=== PATIENT | male | born 1950 | race Caucasian/White ===

== ENCOUNTER 2016-11-19 08:08 | Emergency (ER) | payer MEDICAID ==
[~2016-11-19] VITALS: Ht 170.2 cm; Wt 82.2 kg
[2016-11-19 08:09] VITALS: BP 178/107
[2016-11-19] MEDS ORDERED: OMEP20TA62 PO (08:34)
== END 2016-11-19 09:52 | disposition home or self-care (01) ==
LOC: ED 08:58
DX: S46.811A Strain of other muscles, fascia and tendons at shoulder and upper arm level, right arm, initial encounter (principal); X50.1XXA Overexertion from prolonged static or awkward postures, initial encounter; Y93.89 Activity, other specified; Y92.89 Other specified places as the place of occurrence of the external cause; Y99.8 Other external cause status
CPT/HCPCS: 99284

== ENCOUNTER 2017-02-02 08:13 | Inpatient (IN) | payer MEDICAID, MEDICARE ==
[~2017-02-02] VITALS: Ht 175.3 cm; Wt 78.2 kg
[~2017-02-02 08:13] MED LIST: OMEP20TA62 PO
[2017-02-02] MEDS ORDERED: SODIUM CHLORIDE 0.9% 1,000ML IVBOLUS ONE ×4 (09:00→12:30)
[2017-02-02] MEDS ORDERED: SODIUM CHLORIDE FLUSH 10ML SYR IVF ONE (09:00)
[2017-02-02] MEDS ORDERED: PLEASE ENTER HEIGHT AND WEIGHT MC SCH (09:30)
[2017-02-02] MEDS ORDERED: LORazepam 2 MG/ML, 1ML ONE ×2 (09:35→10:09)
[2017-02-02 09:39] LABS: HEMATOCRIT 49.1 % (39.2-51.8); HEMOGLOBIN 16.8 g/dL (13.7-18.0); WHITE BLOOD COUNT 4.1 x10^3/uL (3.4-10)
[2017-02-02] MEDS ORDERED: LORazepam 2 MG/ML, 1ML IVPush ONE ×2 (10:00→10:30)
[2017-02-02] MEDS ORDERED: CEFTRIAXONE PMX 1GM/50ML 50 ML IV ONE (10:00)
[2017-02-02] MEDS ORDERED: DEXTROSE 50%, 50ML SYRINGE ONE (10:24)
[2017-02-02] MEDS ORDERED: VANCOMYCIN PER PHARMACY MC PRN ×2 (10:30→16:00)
[2017-02-02] MEDS ORDERED: POTASSIUM CHLORIDE 40 MEQ in SODIUM CHLORIDE 0.9% 500 ML IV ONE ×2 (10:30→17:30)
[2017-02-02 10:49] LABS: ACETAMINOPHEN < 2 mcg/mL (10-30); ASPARTATE AMINO TRANSFERASE 567 U/L (15-37); BLOOD UREA NITROGEN 19 mg/dL (7-18)
[2017-02-02] MEDS ORDERED: NS + 40MEQ KCL 1,000 ML IV ONE (11:16)
[2017-02-02] MEDS ORDERED: PHARMACOKINETIC CONSULTATION MC ONE ×2 (11:30→16:00)
[2017-02-02] MEDS ORDERED: NOREPINEPHRINE 4 MG in SODIUM CHLORIDE 0.9% 246 ML IV PRN ×2 (11:30→18:00)
[2017-02-02] MEDS ORDERED: EPINEPHRINE 1 MG/ML, 1ML IVPush ONE ×2 (12:00→12:30)
[2017-02-02] MEDS ORDERED: MIDAZOLAM 1 MG/ML, 5ML IVPush ONE (12:00)
[2017-02-02] MEDS ORDERED: VANCOMYCIN 1,400 MG in SODIUM CHLORIDE 0.9% 250 ML IV ONE (12:00)
[2017-02-02] MEDS ORDERED: SUCCINYLCHOLINE 20 MG/ML, 10ML IVPush ONE (12:00)
[2017-02-02] MEDS ORDERED: MIDAZOLAM 1 MG/ML, 5ML ONE (12:00)
[2017-02-02] MEDS ORDERED: PROPOFOL 10 MG/ML, 100ML IV ONE (12:00)
[2017-02-02] MEDS ORDERED: SUCCINYLCHOLINE 20 MG/ML, 10ML ONE (12:00)
[2017-02-02 12:11] LABS: DAU SCREEN DISCLAIMER
[2017-02-02 12:56] LABS: ABG COLLECTION SITE RIGHT BRACHIAL
[2017-02-02] MEDS ORDERED: DEXTROSE 10%, 250ML IV ONE (13:30)
[2017-02-02] MEDS ORDERED: FENTANYL PF 2,500 MCG in SODIUM CHLORIDE 0.9% 200 ML IV PRN (13:30)
[2017-02-02] MEDS: PROPOFOL 100 ML IV PRN ×3 (13:38→22:32)
[2017-02-02] MEDS ORDERED: DEXTROSE 50%, 50ML SYRINGE IVPush ONE (14:30)
[2017-02-02] MEDS ORDERED: ACETAMINOPHEN 325 MG TABLET PO PRN (15:00)
[2017-02-02] MEDS ORDERED: BISACODYL 10 MG SUPP PR PRN ×2 (15:00→18:00)
[2017-02-02] MEDS ORDERED: POLYETHYLENE GLYCOL 17 GM PACKET PO PRN (15:00)
[2017-02-02] MEDS ORDERED: DOCUSATE 100 MG CAPSULE PO PRN (15:00)
[2017-02-02] MEDS ORDERED: PERMETHRIN CRM 5%, 60GM TP SCH ×2 (15:00→15:30)
[2017-02-02] MEDS ORDERED: PIPERONYL BUTOXIDE/PYRETHRINS SHAMPOO TP PRN (15:30)
[2017-02-02] MEDS ORDERED: LORazepam 2 MG/ML, 1ML IVPush PRN (15:30)
[2017-02-02] MEDS ORDERED: PERMETHRIN CRM 5%, 60GM TP PRN (15:30)
[2017-02-02 15:49] LABS: IS PT STATUS REG ER OR PRE ER? NO
[2017-02-02] MEDS ORDERED: DEXTROSE 4 GM TAB.CHEW PO PRN (16:00)
[2017-02-02] MEDS ORDERED: PHARMACOKINETIC MONITORING MC PRN (16:00)
[2017-02-02] MEDS ORDERED: DEXTROSE 50%, 50ML SYRINGE IVPush PRN (16:00)
[2017-02-02] MEDS ORDERED: MAGNESIUM SULFATE PMX 2GM/50ML 50 ML IV ONE (16:00)
[2017-02-02] MEDS ORDERED: GLUCAGON 1 MG IM PRN (16:00)
[2017-02-02] MEDS ORDERED: ENOXAPARIN 40 MG/0.4 ML SQ SCH (16:00)
[2017-02-02] MEDS ORDERED: PANTOPRAZOLE 40 MG IV IVPush SCH (17:00)
[2017-02-02] MEDS: PIPERACILLIN/TAZO/PMX 3.375GM 50 ML IV SCH ×2 (17:04→23:22)
[2017-02-02] MEDS ORDERED: FENTANYL PF 100 MCG/2ML IVPush PRN (18:00)
[2017-02-02] MEDS ORDERED: SENNA/DOCUSATE TABLET NG PRN (18:00)
[2017-02-02] MEDS ORDERED: LIDOCAINE-MPF 1%, 2ML ENDO PRN (18:00)
[2017-02-02] MEDS ORDERED: LACTULOSE 20 GM/30 ML UDC NG PRN (18:00)
[2017-02-02] MEDS ORDERED: PHARMACY MAY ADJ FOR RENAL FX MC SCH (18:00)
[2017-02-02] MEDS ORDERED: VASOPRESSIN 100 UNIT in SODIUM CHLORIDE 0.9% 495 ML IV PRN (18:00)
[2017-02-02] MEDS ORDERED: MIDAZOLAM 1 MG/ML, 2ML IVPush PRN (18:00)
[2017-02-02] MEDS ORDERED: SENNOSIDES 8.8 MG/5 ML ORAL SOL NG PRN (18:00)
[2017-02-02] MEDS ORDERED: PROPOFOL 100 ML IV PRN (18:00)
[2017-02-02] MEDS ORDERED: DEXTROSE 50%, 50ML VIAL ONE (18:25)
[2017-02-02] MEDS: ALBUTEROL/IPRATROPIUM 2.5MG/0.5MG, 3 ML INLINE SCH ×2 (18:35→22:20)
[2017-02-02 18:44] LABS: ABG COLLECTION SITE RIGHT RADIAL; COLLATERAL CIRCULATION TESTING NORMAL
[2017-02-02 18:46] LABS: HEMATOCRIT 43.5 % (39.2-51.8); HEMOGLOBIN 14.7 g/dL (13.7-18.0); WHITE BLOOD COUNT 5.7 x10^3/uL (3.4-10)
[2017-02-02] MEDS: THIAMINE 100 MG, MVI ADULT 10 ML, FOLIC ACID 1 MG in D5%-0.9% NACL 1,000 ML IV SCH (19:46)
[2017-02-02] MEDS: SODIUM CHLORIDE FLUSH 10ML SYR IVF SCH (19:47)
[2017-02-02] MEDS ORDERED: FAMOTIDINE 20 MG/2 ML IVPush SCH (21:00)
[2017-02-03] MEDS: ALBUTEROL/IPRATROPIUM 2.5MG/0.5MG, 3 ML INLINE SCH ×3 (02:25→10:00)
[2017-02-03 04:00] VITALS: BP 108/71
[2017-02-03 04:34] LABS: ABG COLLECTION SITE RIGHT RADIAL; COLLATERAL CIRCULATION TESTING NORMAL
[2017-02-03] MEDS: PIPERACILLIN/TAZO/PMX 3.375GM 50 ML IV SCH ×4 (05:00→22:50)
[2017-02-03 05:22] LABS: HEMATOCRIT 41.2 % (39.2-51.8); HEMOGLOBIN 14.2 g/dL (13.7-18.0); WHITE BLOOD COUNT 7.3 x10^3/uL (3.4-10)
[2017-02-03 05:50] LABS: ASPARTATE AMINO TRANSFERASE 397 U/L (15-37); BLOOD UREA NITROGEN 15 mg/dL (7-18)
[2017-02-03 06:10] LABS: HEP B SURF. AB < 3.1 mIU/mL (0.0-10.0)
[2017-02-03] MEDS ORDERED: VANCOMYCIN 1,400 MG in SODIUM CHLORIDE 0.9% 250 ML IV SCH ×2 (07:00→13:00)
[2017-02-03] MEDS: PANTOPRAZOLE 40 MG IV IV SCH (09:45)
[2017-02-03] MEDS: SODIUM CHLORIDE FLUSH 10ML SYR IVF SCH ×2 (09:46→21:51)
[2017-02-03] MEDS: POTASSIUM CHLORIDE 20 MEQ TAB.ER.PRT PO SCH ×2 (09:53→21:52)
[2017-02-03] MEDS ORDERED: DIAZEPAM 5 MG/ML, 2ML IV PRN (12:30)
[2017-02-03] MEDS: DIAZEPAM 5 MG/ML, 2ML IV PRN ×2 (16:48→20:54)
[2017-02-03] MEDS ORDERED: ALBUTEROL SULFATE 2.5 MG/3 ML NPPB PRN (17:30)
[2017-02-03] MEDS: THIAMINE 100 MG, MVI ADULT 10 ML, FOLIC ACID 1 MG in D5%-0.9% NACL 1,000 ML IV SCH (18:14)
[2017-02-04] MEDS: DIAZEPAM 5 MG/ML, 10ML VIAL IV PRN ×2 (00:56→05:30)
[2017-02-04] MEDS: SODIUM CHLORIDE 0.9% 1,000 ML IV SCH ×2 (03:47→18:59)
[2017-02-04 04:00] VITALS: BP 127/75
[2017-02-04] MEDS: PIPERACILLIN/TAZO/PMX 3.375GM 50 ML IV SCH (05:30)
[2017-02-04 06:04] LABS: ABG COLLECTION SITE LEFT RADIAL; COLLATERAL CIRCULATION TESTING NORMAL
[2017-02-04 07:14] LABS: HEMATOCRIT 38.7 % (39.2-51.8); HEMOGLOBIN 13.5 g/dL (13.7-18.0); WHITE BLOOD COUNT 9.1 x10^3/uL (3.4-10)
[2017-02-04 07:20] LABS: DIFF TOTAL CELLS COUNTED 100 CELL DIFF
[2017-02-04 07:21] LABS: VERIFY COUNTS? YES
[2017-02-04 07:23] LABS: LARGE PLATELETS 1+
[2017-02-04 07:36] LABS: BLOOD UREA NITROGEN 12 mg/dL (7-18)
[2017-02-04] MEDS ORDERED: SODIUM PHOSPHATE 20 MMOL in SODIUM CHLORIDE 0.9% 500 ML IV ONE (08:00)
[2017-02-04] MEDS: AMPICILLIN/SULBACTAM 3 GM in SODIUM CHLORIDE 0.9% 100 ML IV SCH ×3 (08:55→20:13)
[2017-02-04] MEDS: SODIUM CHLORIDE FLUSH 10ML SYR IVF SCH ×2 (09:36→20:18)
[2017-02-04] MEDS ORDERED: MAGNESIUM SULFATE PMX 2GM/50ML 50 ML IV ONE (10:00)
[2017-02-04] MEDS ORDERED: POTASSIUM PHOSPHATE 44 MEQ in SODIUM CHLORIDE 0.9% 500 ML IV ONE (10:00)
[2017-02-04] MEDS: PANTOPRAZOLE 40 MG IV IV SCH (10:54)
[2017-02-04] MEDS ORDERED: DIAZEPAM 5 MG/ML, 10ML VIAL IV PRN (11:30)
[2017-02-04] MEDS ORDERED: LORazepam 2 MG/ML, 1ML IVPush PRN (14:30)
[2017-02-04 16:09] VITALS: BP 125/80
[2017-02-04] MEDS: THIAMINE 100 MG, MVI ADULT 10 ML, FOLIC ACID 1 MG in D5%-0.9% NACL 1,000 ML IV SCH (18:57)
[2017-02-04] MEDS ORDERED: DEXTROSE 50%, 50ML SYRINGE IVPush PRN (19:00)
[2017-02-04] MEDS ORDERED: ACETAMINOPHEN 325 MG TABLET PO PRN (19:00)
[2017-02-04] MEDS ORDERED: ALBUTEROL SULFATE 2.5 MG/3 ML NPPB PRN (19:00)
[2017-02-04] MEDS ORDERED: LACTULOSE 20 GM/30 ML UDC NG PRN (19:00)
[2017-02-04] MEDS ORDERED: DOCUSATE 100 MG CAPSULE PO PRN (19:00)
[2017-02-04] MEDS ORDERED: PHARMACY MAY ADJ FOR RENAL FX MC SCH (19:00)
[2017-02-04] MEDS ORDERED: BISACODYL 10 MG SUPP PR PRN (19:00)
[2017-02-04 19:13] VITALS: BP 121/75
[2017-02-04] MEDS: LORazepam 2 MG/ML, 1ML IVPush PRN (20:13)
[2017-02-04] MEDS: ENOXAPARIN 40 MG/0.4 ML SQ SCH (20:18)
[2017-02-04] MEDS ORDERED: ENOXAPARIN 40 MG/0.4 ML SQ SCH (21:00)
[2017-02-05] MEDS: LORazepam 2 MG/ML, 1ML IVPush PRN (00:32)
[2017-02-05] MEDS: AMPICILLIN/SULBACTAM 3 GM in SODIUM CHLORIDE 0.9% 100 ML IV SCH ×4 (01:51→20:56)
[2017-02-05 02:27] VITALS: BP 113/76
[2017-02-05 05:53] LABS: ABG COLLECTION SITE RIGHT BRACHIAL; FIO2 ROOM AIR %
[2017-02-05 06:02] LABS: BLOOD UREA NITROGEN 12 mg/dL (7-18)
[2017-02-05 06:35] LABS: HEMATOCRIT 35.2 % (39.2-51.8); HEMOGLOBIN 12.2 g/dL (13.7-18.0)
[2017-02-05 08:00] VITALS: BP 112/72
[2017-02-05] MEDS: SODIUM CHLORIDE FLUSH 10ML SYR IVF SCH ×2 (08:08→20:57)
[2017-02-05] MEDS ORDERED: POTASSIUM CHLORIDE 20 MEQ TAB.ER.PRT PO ONE (10:30)
[2017-02-05] MEDS ORDERED: PHARMACOKINETIC CONSULTATION MC ONE (12:00)
[2017-02-05] MEDS ORDERED: PHARMACOKINETIC MONITORING MC PRN (12:00)
[2017-02-05] MEDS ORDERED: VANCOMYCIN PER PHARMACY MC PRN (12:00)
[2017-02-05] MEDS: VANCOMYCIN 1,400 MG in SODIUM CHLORIDE 0.9% 250 ML IV SCH (12:45)
[2017-02-05] MEDS: SODIUM CHLORIDE 0.9% 1,000 ML IV SCH ×2 (12:46→22:00)
[2017-02-05 14:00] VITALS: BP 128/84
[2017-02-05] MEDS: THIAMINE 100 MG, MVI ADULT 10 ML, FOLIC ACID 1 MG in D5%-0.9% NACL 1,000 ML IV SCH (19:08)
[2017-02-05 19:17] VITALS: BP 120/87
[2017-02-05] MEDS: ENOXAPARIN 40 MG/0.4 ML SQ SCH (20:57)
[2017-02-06] MEDS: LORazepam 2 MG/ML, 1ML IVPush PRN (02:51)
[2017-02-06] MEDS: AMPICILLIN/SULBACTAM 3 GM in SODIUM CHLORIDE 0.9% 100 ML IV SCH ×4 (02:51→19:45)
[2017-02-06] MEDS ORDERED: DIAZEPAM 5 MG/ML, 2ML IVPush PRN (03:00)
[2017-02-06] MEDS ORDERED: DIAZEPAM 5 MG/ML, 10ML VIAL IVPush PRN (03:00)
[2017-02-06 03:03] VITALS: BP 136/93
[2017-02-06] MEDS: SODIUM CHLORIDE 0.9% 1,000 ML IV SCH (05:59)
[2017-02-06 06:27] LABS: ABG COLLECTION SITE RIGHT RADIAL; COLLATERAL CIRCULATION TESTING NORMAL
[2017-02-06 06:28] LABS: FIO2 ROOM AIR %
[2017-02-06 06:57] LABS: HEMATOCRIT 36.8 % (39.2-51.8); HEMOGLOBIN 12.4 g/dL (13.7-18.0); WHITE BLOOD COUNT 7.4 x10^3/uL (3.4-10)
[2017-02-06 06:58] LABS: ASPARTATE AMINO TRANSFERASE 302 U/L (15-37); BLOOD UREA NITROGEN 15 mg/dL (7-18)
[2017-02-06] MEDS: METRONIDAZOLE PMX 500MG/100ML 100 ML IV SCH ×3 (07:33→22:46)
[2017-02-06 08:45] VITALS: BP 130/91
[2017-02-06] MEDS: SODIUM CHLORIDE FLUSH 10ML SYR IVF SCH ×2 (09:00→21:00)
[2017-02-06] MEDS: VANCOMYCIN 1,400 MG in SODIUM CHLORIDE 0.9% 250 ML IV SCH (12:21)
[2017-02-06 15:29] VITALS: BP 125/86
[2017-02-06] MEDS ORDERED: MAGNESIUM SULFATE PMX 2GM/50ML 50 ML IV ONE (16:00)
[2017-02-06] MEDS ORDERED: POTASSIUM CHLORIDE 20 MEQ TAB.ER.PRT PO ONE ×2 (16:00→20:00)
[2017-02-06] MEDS ORDERED: SODIUM PHOSPHATE 30 MMOL in SODIUM CHLORIDE 0.9% 500 ML IV ONE (16:30)
[2017-02-06 20:01] VITALS: BP 126/86
[2017-02-06] MEDS: ENOXAPARIN 40 MG/0.4 ML SQ SCH ×2 (21:00→21:59)
[2017-02-06] MEDS: THIAMINE 100 MG, MVI ADULT 10 ML, FOLIC ACID 1 MG in D5%-0.9% NACL 1,000 ML IV SCH (21:59)
[2017-02-06] MEDS: POTASSIUM CHLORIDE 20 MEQ TAB.ER.PRT PO SCH (22:43)
[2017-02-07] MEDS: AMPICILLIN/SULBACTAM 3 GM in SODIUM CHLORIDE 0.9% 100 ML IV SCH ×4 (02:01→22:16)
[2017-02-07 02:14] VITALS: BP 114/81
[2017-02-07] MEDS: METRONIDAZOLE PMX 500MG/100ML 100 ML IV SCH (05:47)
[2017-02-07 06:16] LABS: BLOOD UREA NITROGEN 14 mg/dL (7-18)
[2017-02-07 06:43] LABS: HEMATOCRIT 32.4 % (39.2-51.8); HEMOGLOBIN 11.1 g/dL (13.7-18.0); WHITE BLOOD COUNT 6.7 x10^3/uL (3.4-10)
[2017-02-07 06:45] LABS: ASPARTATE AMINO TRANSFERASE 166 U/L (15-37)
[2017-02-07 06:46] LABS: ANISOCYTOSIS 1+; POLYCHROMASIA 1+
[2017-02-07] MEDS ORDERED: POTASSIUM CHLORIDE 40 MEQ in SODIUM CHLORIDE 0.9% 500 ML IV ONE (07:30)
[2017-02-07] MEDS ORDERED: MAGNESIUM SULFATE PMX 4GM/100M 100 ML IV ONE (07:30)
[2017-02-07] MEDS: SODIUM CHLORIDE FLUSH 10ML SYR IVF SCH ×2 (08:00→21:00)
[2017-02-07] MEDS: POTASSIUM CHLORIDE 20 MEQ TAB.ER.PRT PO SCH ×2 (08:00→17:32)
[2017-02-07 08:31] VITALS: BP 131/89
[2017-02-07] MEDS ORDERED: SODIUM PHOSPHATE 4 MEQ/ML IV SCH (09:00)
[2017-02-07] MEDS ORDERED: POTASSIUM CHLORIDE 20 MEQ TAB.ER.PRT PO ONE (09:00)
[2017-02-07] MEDS: CALCIUM CARBONATE 500 MG TABLET PO SCH ×2 (10:30→21:00)
[2017-02-07] MEDS: POTASSIUM CHLORIDE 40 MEQ in D5%-0.2% NACL 1,000 ML IV SCH (10:45)
[2017-02-07 12:52] LABS: ASPARTATE AMINO TRANSFERASE 203 U/L (15-37); BLOOD UREA NITROGEN 19 mg/dL (7-18)
[2017-02-07 13:57] VITALS: BP 117/80
[2017-02-07] MEDS: ERGOCALCIFEROL 50,000 UNIT CAPSULE PO SCH (15:30)
[2017-02-07] MEDS: LORazepam 2 MG/ML, 1ML IVPush PRN ×3 (16:52→23:19)
[2017-02-07 19:12] VITALS: BP 125/89
[2017-02-07 19:52] VITALS: BP 147/102
[2017-02-07] MEDS: ENOXAPARIN 40 MG/0.4 ML SQ SCH (21:00)
[2017-02-07] MEDS: THIAMINE 100 MG, MVI ADULT 10 ML, FOLIC ACID 1 MG in D5%-0.9% NACL 1,000 ML IV SCH (23:19)
[2017-02-08 02:42] VITALS: BP 126/91
[2017-02-08] MEDS: AMPICILLIN/SULBACTAM 3 GM in SODIUM CHLORIDE 0.9% 100 ML IV SCH ×4 (02:45→21:00)
[2017-02-08 06:00] LABS: ABG COLLECTION SITE RIGHT RADIAL; COLLATERAL CIRCULATION TESTING NORMAL; FIO2 ROOM AIR %
[2017-02-08] MEDS: LORazepam 2 MG/ML, 1ML IVPush PRN ×2 (06:06→23:16)
[2017-02-08 06:07] LABS: HEMATOCRIT 37.3 % (39.2-51.8); HEMOGLOBIN 12.8 g/dL (13.7-18.0)
[2017-02-08 06:36] LABS: ASPARTATE AMINO TRANSFERASE 148 U/L (15-37); BLOOD UREA NITROGEN 18 mg/dL (7-18)
[2017-02-08 08:00] VITALS: BP 131/90
[2017-02-08] MEDS: SODIUM CHLORIDE FLUSH 10ML SYR IVF SCH ×2 (09:00→20:43)
[2017-02-08] MEDS: MULTIVITAMIN 1 TABLET PO SCH (10:30)
[2017-02-08] MEDS: FOLIC ACID 1 MG TABLET PO SCH (10:30)
[2017-02-08] MEDS ORDERED: POTASSIUM PHOSPHATE 44 MEQ in SODIUM CHLORIDE 0.9% 500 ML IV ONE (10:30)
[2017-02-08] MEDS: POTASSIUM CHLORIDE 40 MEQ in D5%-0.2% NACL 1,000 ML IV SCH ×2 (12:29→23:16)
[2017-02-08] MEDS ORDERED: OMNIPAQUE 350 MG/ML, 100ML BOTTLE ONE (15:05)
[2017-02-08 16:31] VITALS: BP 123/86
[2017-02-08] MEDS: ENOXAPARIN 40 MG/0.4 ML SQ SCH (21:00)
[2017-02-08 21:09] VITALS: BP 126/88
[2017-02-09 02:00] VITALS: BP 143/87
[2017-02-09] MEDS: AMPICILLIN/SULBACTAM 3 GM in SODIUM CHLORIDE 0.9% 100 ML IV SCH ×4 (04:26→21:48)
[2017-02-09 06:31] LABS: ASPARTATE AMINO TRANSFERASE 133 U/L (15-37); BLOOD UREA NITROGEN 15 mg/dL (7-18)
[2017-02-09 06:46] VITALS: BP 134/100
[2017-02-09 07:29] LABS: HEMATOCRIT 36.6 % (39.2-51.8); HEMOGLOBIN 12.6 g/dL (13.7-18.0); WHITE BLOOD COUNT 9.4 x10^3/uL (3.4-10)
[2017-02-09 07:56] VITALS: BP 155/91
[2017-02-09] MEDS: THIAMINE 100MG TABLET PO SCH (08:05)
[2017-02-09] MEDS: MULTIVITAMIN 1 TABLET PO SCH (08:05)
[2017-02-09] MEDS: FOLIC ACID 1 MG TABLET PO SCH (08:05)
[2017-02-09] MEDS: SODIUM CHLORIDE FLUSH 10ML SYR IVF SCH ×2 (08:06→21:48)
[2017-02-09 11:07] LABS: FUNGITELL RESULT 57 pg/mL (<80)
[2017-02-09] MEDS: LORazepam 2 MG/ML, 1ML IVPush PRN (12:08)
[2017-02-09] MEDS: POTASSIUM CHLORIDE 40 MEQ in D5%-0.2% NACL 1,000 ML IV SCH (12:40)
[2017-02-09 14:15] VITALS: BP 146/100
[2017-02-09] MEDS ORDERED: LABETALOL 5MG/ML, 20ML IVPush PRN (15:00)
[2017-02-09] MEDS ORDERED: ENALAPRILAT 1.25 MG/ML, 2ML IV PRN (15:00)
[2017-02-09] MEDS ORDERED: LISINOPRIL 5 MG TABLET PO SCH (15:00)
[2017-02-09 15:43] VITALS: BP 140/94
[2017-02-09] MEDS: SODIUM CHLORIDE 0.9% 1,000 ML IV SCH (15:50)
[2017-02-09 19:05] VITALS: BP 135/85
[2017-02-09] MEDS: ENOXAPARIN 40 MG/0.4 ML SQ SCH ×2 (21:00→21:48)
[2017-02-10 00:13] VITALS: BP 142/90
[2017-02-10] MEDS: SODIUM CHLORIDE 0.9% 1,000 ML IV SCH (04:30)
[2017-02-10] MEDS: AMPICILLIN/SULBACTAM 3 GM in SODIUM CHLORIDE 0.9% 100 ML IV SCH ×4 (04:30→21:30)
[2017-02-10 05:54] LABS: BLOOD UREA NITROGEN 11 mg/dL (7-18)
[2017-02-10 05:57] LABS: ASPARTATE AMINO TRANSFERASE 91 U/L (15-37)
[2017-02-10 06:21] LABS: HEMATOCRIT 36.7 % (39.2-51.8); HEMOGLOBIN 12.5 g/dL (13.7-18.0); WHITE BLOOD COUNT 12.4 x10^3/uL (3.4-10)
[2017-02-10] MEDS ORDERED: hydrALAzine 20 MG/ML, 1ML IV PRN (06:30)
[2017-02-10 07:02] VITALS: BP 134/91
[2017-02-10] MEDS: LACTATED RINGERS 1,000 ML IV SCH ×2 (08:30→21:30)
[2017-02-10] MEDS: THIAMINE 100MG TABLET PO SCH ×2 (09:00→09:41)
[2017-02-10] MEDS: MULTIVITAMIN 1 TABLET PO SCH ×2 (09:00→09:41)
[2017-02-10] MEDS: FOLIC ACID 1 MG TABLET PO SCH (09:00)
[2017-02-10] MEDS: AMLODIPINE 5 MG TABLET PO SCH ×2 (09:00→09:41)
[2017-02-10] MEDS ORDERED: LORazepam 2 MG/ML, 1ML IVPush PRN (09:00)
[2017-02-10] MEDS: SODIUM CHLORIDE FLUSH 10ML SYR IVF SCH ×2 (09:00→21:34)
[2017-02-10 13:05] VITALS: BP 131/86
[2017-02-10 18:59] VITALS: BP 127/81
[2017-02-10] MEDS: ENOXAPARIN 40 MG/0.4 ML SQ SCH (21:29)
[2017-02-11 01:39] VITALS: BP 159/78
[2017-02-11] MEDS: AMPICILLIN/SULBACTAM 3 GM in SODIUM CHLORIDE 0.9% 100 ML IV SCH ×4 (04:49→23:30)
[2017-02-11] MEDS: LACTATED RINGERS 1,000 ML IV SCH ×2 (04:49→19:57)
[2017-02-11 05:36] LABS: HEMATOCRIT 37.8 % (39.2-51.8); WHITE BLOOD COUNT 12.2 x10^3/uL (3.4-10)
[2017-02-11 05:55] LABS: ASPARTATE AMINO TRANSFERASE 95 U/L (15-37); BLOOD UREA NITROGEN 8 mg/dL (7-18)
[2017-02-11] MEDS ORDERED: POTASSIUM CHLORIDE 20 MEQ in SODIUM CHLORIDE 0.9% 250 ML IV ONE (07:00)
[2017-02-11 08:28] VITALS: BP 122/80
[2017-02-11] MEDS ORDERED: DEXTROSE 50%, 50ML SYRINGE IVPush ONE (09:00)
[2017-02-11] MEDS: AMLODIPINE 5 MG TABLET PO SCH (09:00)
[2017-02-11] MEDS: FOLIC ACID 1 MG TABLET PO SCH (09:00)
[2017-02-11] MEDS: THIAMINE 100MG TABLET PO SCH (09:00)
[2017-02-11] MEDS: MULTIVITAMIN 1 TABLET PO SCH (09:00)
[2017-02-11] MEDS: SODIUM CHLORIDE FLUSH 10ML SYR IVF SCH ×2 (09:07→19:57)
[2017-02-11] MEDS ORDERED: NALOXONE 1 MG/ML, 2ML ONE (10:39)
[2017-02-11] MEDS ORDERED: MIDAZOLAM 1 MG/ML, 5ML ONE (10:39)
[2017-02-11] MEDS ORDERED: FLUMAZENIL 0.1 MG/1 ML, 5ML ONE (10:39)
[2017-02-11] MEDS ORDERED: FENTANYL PF 100 MCG/2ML ONE ×2 (10:39)
[2017-02-11] MEDS ORDERED: GADOBUTROL 10 MMOL/10 ML PFS ONE (11:57)
[2017-02-11 14:30] VITALS: BP 128/66
[2017-02-11] MEDS ORDERED: DOCUSATE 100 MG CAPSULE PO PRN (16:30)
[2017-02-11] MEDS ORDERED: LABETALOL 5MG/ML, 20ML IVPush PRN (16:30)
[2017-02-11] MEDS ORDERED: BISACODYL 10 MG SUPP PR PRN ×2 (16:30)
[2017-02-11] MEDS ORDERED: LACTULOSE 20 GM/30 ML UDC NG PRN (16:30)
[2017-02-11] MEDS ORDERED: SENNA/DOCUSATE TABLET NG PRN (16:30)
[2017-02-11] MEDS ORDERED: hydrALAzine 20 MG/ML, 1ML IV PRN (16:30)
[2017-02-11] MEDS ORDERED: ACETAMINOPHEN 325 MG TABLET PO PRN (16:30)
[2017-02-11 18:31] VITALS: BP 136/78
[2017-02-11] MEDS: ENOXAPARIN 40 MG/0.4 ML SQ SCH (19:57)
[2017-02-12 01:03] VITALS: BP 137/93
[2017-02-12 05:12] LABS: HEMATOCRIT 38.2 % (39.2-51.8); HEMOGLOBIN 13.1 g/dL (13.7-18.0); WHITE BLOOD COUNT 10.2 x10^3/uL (3.4-10)
[2017-02-12 05:17] LABS: BLOOD UREA NITROGEN 8 mg/dL (7-18)
[2017-02-12 05:22] LABS: ASPARTATE AMINO TRANSFERASE 80 U/L (15-37)
[2017-02-12] MEDS: LACTATED RINGERS 1,000 ML IV SCH ×2 (06:01→17:47)
[2017-02-12] MEDS: AMPICILLIN/SULBACTAM 3 GM in SODIUM CHLORIDE 0.9% 100 ML IV SCH ×4 (06:02→23:55)
[2017-02-12] MEDS: SODIUM CHLORIDE FLUSH 10ML SYR IVF SCH ×2 (09:00→20:50)
[2017-02-12] MEDS: THIAMINE 100MG TABLET PO SCH (09:18)
[2017-02-12] MEDS: FOLIC ACID 1 MG TABLET PO SCH (09:18)
[2017-02-12] MEDS: AMLODIPINE 5 MG TABLET PO SCH (09:18)
[2017-02-12] MEDS: MULTIVITAMIN 1 TABLET PO SCH (09:18)
[2017-02-12 09:19] VITALS: BP 135/74
[2017-02-12 13:55] VITALS: BP 131/88
[2017-02-12] MEDS ORDERED: POTASSIUM CHLORIDE 20 MEQ TAB.ER.PRT PO ONE (17:00)
[2017-02-12 19:12] VITALS: BP 109/68
[2017-02-12] MEDS: ENOXAPARIN 40 MG/0.4 ML SQ SCH (20:50)
[2017-02-13 01:16] VITALS: BP 116/75
[2017-02-13] MEDS: LACTATED RINGERS 1,000 ML IV SCH ×2 (04:36→19:24)
[2017-02-13 05:30] LABS: HEMATOCRIT 34.2 % (39.2-51.8); HEMOGLOBIN 11.8 g/dL (13.7-18.0); WHITE BLOOD COUNT 8.4 x10^3/uL (3.4-10)
[2017-02-13 05:47] LABS: ASPARTATE AMINO TRANSFERASE 60 U/L (15-37); BLOOD UREA NITROGEN 7 mg/dL (7-18)
[2017-02-13] MEDS: AMPICILLIN/SULBACTAM 3 GM in SODIUM CHLORIDE 0.9% 100 ML IV SCH ×3 (06:02→19:24)
[2017-02-13 08:35] VITALS: BP 125/72
[2017-02-13] MEDS: FOLIC ACID 1 MG TABLET PO SCH (08:41)
[2017-02-13] MEDS: AMLODIPINE 5 MG TABLET PO SCH (08:41)
[2017-02-13] MEDS: SODIUM CHLORIDE FLUSH 10ML SYR IVF SCH ×2 (08:41→19:25)
[2017-02-13] MEDS: THIAMINE 100MG TABLET PO SCH (08:41)
[2017-02-13] MEDS: MULTIVITAMIN 1 TABLET PO SCH (08:41)
[2017-02-13 14:20] VITALS: BP 130/74
[2017-02-13] MEDS ORDERED: LOPERAMIDE 2 MG CAPSULE PO ONE (14:30)
[2017-02-13 16:07] LABS: COCCIDIOIDES AB (CF) <1:2 (<1:2); COCCIDIOIDES IGG 0.5 IV (<=0.9); COCCIDIOIDES IGM 0.6 IV (<=0.9)
[2017-02-13] MEDS: ENOXAPARIN 40 MG/0.4 ML SQ SCH (19:24)
[2017-02-13 19:35] VITALS: BP 130/72
[2017-02-14 01:04] VITALS: BP 112/64
[2017-02-14] MEDS: AMPICILLIN/SULBACTAM 3 GM in SODIUM CHLORIDE 0.9% 100 ML IV SCH ×3 (02:07→14:23)
[2017-02-14 03:19] VITALS: BP 128/71
[2017-02-14] MEDS: LACTATED RINGERS 1,000 ML IV SCH (05:33)
[2017-02-14 07:45] VITALS: BP 137/75
[2017-02-14 08:35] LABS: ASPARTATE AMINO TRANSFERASE 80 U/L (15-37); BLOOD UREA NITROGEN 5 mg/dL (7-18)
[2017-02-14 08:41] LABS: HEMATOCRIT 36.5 % (39.2-51.8); HEMOGLOBIN 12.4 g/dL (13.7-18.0); WHITE BLOOD COUNT 7.1 x10^3/uL (3.4-10)
[2017-02-14] MEDS: FOLIC ACID 1 MG TABLET PO SCH (08:47)
[2017-02-14] MEDS: MULTIVITAMIN 1 TABLET PO SCH (08:47)
[2017-02-14] MEDS: THIAMINE 100MG TABLET PO SCH (08:47)
[2017-02-14] MEDS: AMLODIPINE 5 MG TABLET PO SCH (08:47)
[2017-02-14] MEDS: SODIUM CHLORIDE FLUSH 10ML SYR IVF SCH (08:48)
[2017-02-14 13:57] VITALS: BP 144/82
[2017-02-14] MEDS: ERGOCALCIFEROL 50,000 UNIT CAPSULE PO SCH (14:23)
[2017-02-14] MEDS ORDERED: LOPERAMIDE 2 MG CAPSULE PO PRN (15:00)
[2017-02-14] MEDS ORDERED: AMPI3VIA IV (19:34)
[2017-02-14] MEDS ORDERED: ENOX40SY4 SQ (19:35)
[2017-02-14] MEDS ORDERED: MULT-257 PO (19:37)
[2017-02-14] MEDS ORDERED: ERGO2000 PO (19:37)
[2017-02-14] MEDS ORDERED: ACET325S PO (19:38)
[2017-02-14] MEDS ORDERED: AMLO5TAB4 PO (19:39)
== END 2017-02-14 19:48 | DRG 871 ==
LOC: ED 09:27 → EDIP 11:01 → CSU 14:36 → CCU 14:40 → 3NE 02-04 15:44 → 4WST 02-07 10:45 → 4EST 02-08 21:57 → 4NOR 02-11 11:49
PROVIDERS: ADMIT Hospitalist; ATTEND Hospitalist
PROC: 0T9B70Z Drainage of Bladder with Drainage Device, Via Natural or Artificial Opening (ICD-10-PCS; 2017-02-02)
PROC: 5A1945Z Respiratory Ventilation, 24-96 Consecutive Hours (ICD-10-PCS; principal; 2017-02-06)
PROC: 0BH17EZ Insertion of Endotracheal Airway into Trachea, Via Natural or Artificial Opening (ICD-10-PCS; 2017-02-06)
PROC: 02HV33Z Insertion of Infusion Device into Superior Vena Cava, Percutaneous Approach (ICD-10-PCS; 2017-02-14)
PROC: B5181ZA Fluoroscopy of Superior Vena Cava using Low Osmolar Contrast, Guidance (ICD-10-PCS; 2017-02-14)
DX: A41.9 Sepsis, unspecified organism (principal); J96.00 Acute respiratory failure, unspecified whether with hypoxia or hypercapnia; R65.21 Severe sepsis with septic shock; E43 Unspecified severe protein-calorie malnutrition; G93.41 Metabolic encephalopathy; G93.40 Encephalopathy, unspecified; K85.90 Acute pancreatitis without necrosis or infection, unspecified; Z99.11 Dependence on respirator [ventilator] status; D69.6 Thrombocytopenia, unspecified; E87.4 Mixed disorder of acid-base balance; E87.1 Hypo-osmolality and hyponatremia; I48.1 Persistent atrial fibrillation; F10.239 Alcohol dependence with withdrawal, unspecified; L03.115 Cellulitis of right lower limb; J98.11 Atelectasis; K92.2 Gastrointestinal hemorrhage, unspecified; T68.XXXA Hypothermia, initial encounter; K76.0 Fatty (change of) liver, not elsewhere classified; K75.9 Inflammatory liver disease, unspecified; E83.42 Hypomagnesemia; E83.39 Other disorders of phosphorus metabolism; B85.3 Phthiriasis; D53.9 Nutritional anemia, unspecified; Z88.2 Allergy status to sulfonamides; Z88.8 Allergy status to other drugs, medicaments and biological substances; B85.2 Pediculosis, unspecified; E16.2 Hypoglycemia, unspecified; Z68.25 Body mass index [BMI] 25.0-25.9, adult; E55.9 Vitamin D deficiency, unspecified; E87.6 Hypokalemia; F10.229 Alcohol dependence with intoxication, unspecified; F17.210 Nicotine dependence, cigarettes, uncomplicated; J32.4 Chronic pansinusitis; K08.89 Other specified disorders of teeth and supporting structures; K27.9 Peptic ulcer, site unspecified, unspecified as acute or chronic, without hemorrhage or perforation; K80.70 Calculus of gallbladder and bile duct without cholecystitis without obstruction; X31.XXXA Exposure to excessive natural cold, initial encounter; Z59.0 Homelessness; Z87.11 Personal history of peptic ulcer disease; R74.0 Nonspecific elevation of levels of transaminase and lactic acid dehydrogenase [LDH]; R19.7 Diarrhea, unspecified
CPT/HCPCS: 31500; 36415; 36556; 36569; 36600; 70486; 70553; 71010; 71260; 72158; 74177; 74230; 76700; 76937; 77001; 80048; 80053; 80307; 80329; 81001; 82140; 82306; 82330; 82550; 82607; 82746; 82803; 82947; 82962; 83605; 83690; 83735; 83970; 84100; 84132; 84145; 84443; 84478; 84484; 85025; 85610; 85651; 85730; 86140; 86480; 86635; 86706; 86803; 87040; 87070; 87081; 87086; 87186; 87205; 87305; 87324; 87340; 87449; 87493; 93005; 93306; 94002; 94003; 94150; 94640; 96361; 96365; 96366; 96368; 96375; 96376; 99156; 99292; A9585; J0171; J0295; J0696; J1650; J2250; J2543; J2704; J3010; J3360; J3370; J3411; J3480; J7042; J7613; J7620; Q9967; C1751; C9113; G0479; G0480; J0330; J2060; J2310; J3475; J7030; J7040; J7050; J7120